=== PATIENT | female | born 1975 | race Caucasian/White ===

== ENCOUNTER 2023-04-26 21:31 | Emergency (ER) | payer OTHER, SELFPAY ==
[2023-04-26 21:33] VITALS: BP 135/89; PULSE 117; RESP 16; TEMP 36.2; O2SAT 98; BMI 27.8
--- NOTE | 2023-04-26 21:47 | EDS_ITS ---
HPI History of Present Illness Chief Complaint: Lower Extremity Injury Detail of Chief Complaint: Left leg edema Informant: patient Onset/Context/Timing Onset: Yesterday Narrative Narrative: Patient presents secondary to swelling in her left calf. She states she noted the symptoms yesterday but has no pain. She is from [place] and made a 6-hour car ride up on Saturday. She states he did stop frequently and walk around. She has no history of DVT. She has no leg pain, nor chest pain or shortness of breath. She states she went to a wedding today and wore high heels without any difficulty. [facility] Medical History (Updated 04/27/23 @ 00:[address] Sangita García MD) Breast cancer Home Medications rivaroxaban 15 mg tablet (Xarelto) 15 mg PO BID #14 TABLETS 04/27/23 [Rx Last Taken Unknown] Allergy/AdvReac Type Severity Reaction Status Date / Time No Known Allergies Allergy Verified 04/26/23 21:33 Social History Smoking Status: Never smoker ROS ROS ED Constitutional Constitutional ED: Denies chills or fever(s) Eyes Eyes: Denies discharge from eye(s) ENT ENT ED: Denies discharge from eye(s), rhinorrhea or sore throat Cardiovascular Cardiovascular: Denies chest pain or palpitations Respiratory/Chest Respiratory/Chest: Denies cough or dyspnea Gastrointestinal Gastrointestinal: Denies abdominal pain, nausea or vomiting Musculoskeletal Musculoskeletal: Reports other Details: Lower extremity edema ; Denies back pain or extremity pain Integumentary Denies Abrasions or rash Neurologic Neurologic: Denies headache(s) or weakness Psychiatric Psychiatric: Denies anxiety or depression Allergic/Immunologic Allergic/Immunologic ED: Denies lip swelling or urticaria EXAM Physical Exam Const Vital Signs: 04/26/23 21:33 Temperature 97.2 F L Temperature Source Temporal Pulse Rate 117 H Respiratory Rate 16 Blood Pressure 135/89 H Blood Pressure Mean 104 Pulse Ox 98 Oxygen Delivery Method Room Air Positive well nourished and well developed General Appearance ED: well developed HEENT Reports moist mucous membranes Eyes EOMs intact bilaterally Chest Wall inspection of chest normal and palpation of chest normal Resp normal respiratory effort and clear to auscultation bilaterally Cardio regular rate and regular rhythm GI normal to inspection, nondistended, normoactive bowel sounds Extremity Extremity Narrative: Mild edema to the distal aspect of the left lower extremity. No erythema. No palpable cords or tenderness to palpation. Strong distal pulses. Normal sensation. Neuro oriented x3 and no sensory deficits noted Motor Exam: strength 5/5 throughout Psych mental status grossly normal Skin no rashes or lesions noted MDM MDM MDM Narrative Medical decision making narrative: Venous ultrasound of the left lower extremity obtained to evaluate for DVT. Received a phone call from the [facility]. Patient does have a DVT in the mid calf and up into the popliteal. Test results discussed with patient. With need for anticoagulation I did draw a CBC and BMP to ensure normal renal function. Hemoglobin 7.1. Platelet count is slightly low at 133,000. Her white count is normal at 7.1. Chemistry studies are unremarkable with normal renal function. Patient is given a copy of her labs. I will write her a 1 week course of Xarelto. She is returning back to [place] Saturday and will follow-up with her oncologist for repeat lab work at that time. If he wishes to continue her Xarelto he can write further prescription for this. Patient and at bedside are in agreement with the plan. Lab Data Labs: Laboratory Results - last 24 hr 04/26/23 23:31 WBC 7.1 RBC 2.09 L Hgb 7.1 L Hct 23.1 L MCV 110.5 H MCH 34.0 H MCHC 30.7 L RDW Std Deviation 65.8 H RDW Coeff of James 16.7 H Plt Count 133 L MPV 10.8 Neut % (Auto) Not Reportable Sodium 144 Potassium 3.5 Chloride 115 H Carbon Dioxide 25.0 Anion Gap 4 L BUN 10 Creatinine 0.82 Estim Creat Clear Calc 76.32 Est GFR (MDRD) Af Amer 96 Est GFR (MDRD) Non-Af 79 BUN/Creatinine Ratio 12.2 Glucose 119 H Calcium 8.7 Radiography Diagnostic Testing: Clinical Impression(s) from Imaging Studies Venous Duplex 04/26/23 21:49 IMPRESSION: DVT left popliteal, posterior tibial and peroneal veins Electronically Signed: Prasanth Gunn MD at 22:53 EST Reading Location ID and State: [facility] / [place] Tel , Service support , ADDENDUM: 04/26/23 2311 IMPRESSION: DVT left popliteal, posterior tibial and peroneal veins N.B. : The above Results were Read Back by Prasanth Gunn MD to [phone], and understanding confirmed on 04/26/2023 23:04:35 (ET). Electronically Signed: Prasanth Gunn MD at 22:53 EST , Discharge Plan Triage Chief Complaint: Lower Extremity Injury ED Provider: Sangita García Dx/Rx/DC Orders Clinical Impression: DVT (deep venous thrombosis) Instructions: ED Deep Vein Thrombosis (DVT) Prescriptions: New Xarelto 15 mg tablet 15 mg PO BID Qty: 14 0RF Primary Care Provider: [facility] ,Out of Referrals: [facility] Doctor,Out of [Primary Care Provider] - Disposition Disposition: Home, Self Care
--- NOTE | 2023-04-26 21:49 | US_ITS ---
We are attempting to reach an attending provider to discuss findings. An addendum with communication details will be sent when the communication is complete. STUDY: VENOUS DOPPLER ULTRASOUND - LEFT LOWER EXTREMITY REASON FOR EXAM: Female, 48 years old. swelling left leg TECHNIQUE: Ultrasound evaluation of the deep vein system to include somers-scale imaging and compression was performed. Somers-scale imaging and Doppler sonographic evaluation, including duplex spectral analysis and qualitative color flow sonography, was performed. COMPARISON: None. FINDINGS: Common Femoral Vein: Normal compression, spontaneity and augmentation. Normal color Doppler. Common Femoral Vein/Greater Saphenous Junction: Normal compression, spontaneity and augmentation. Normal color Doppler. Deep Femoral Vein: Normal compression, spontaneity and augmentation. Normal color Doppler. Femoral Proximal: Normal compression, spontaneity and augmentation. Normal color Doppler. Femoral Middle: Normal compression, spontaneity and augmentation. Normal color Doppler. Femoral Distal: Normal compression, spontaneity and augmentation. Normal color Doppler. Popliteal Vein: [No compression, spontaneity and augmentation. No color Doppler. Posterior Tibial Vein: No compression, spontaneity and augmentation. No color Doppler. Peroneal Vein: No compression, spontaneity and augmentation. No color Doppler. US/Venous Duplex Imag/Limited/Uni IMPRESSION: DVT left popliteal, posterior tibial and peroneal veins Electronically Signed: Prasanth Gunn MD at 22:53 EST ,
[2023-04-26 23:39] LABS: Hematocrit 23.1 % (37-47); Hemoglobin 7.1 g/dL (12.0-15.0); Mean Corp Hgb Conc 30.7 g/dL (32-36); Mean Corpuscular Volume 110.5 fL (81-99); Mean Platelet Vol. 10.8 fl (6.2-12.0); POSITIVE COUNT YES; POSITIVE MORPHOLOGY YES; Platelet Count 133 K/mm3 (150-450); RBC Distribution Width CV 16.7 % (11.6-14.6); RBC Distribution Width SD 65.8 fl (35.1-43.9); Red Blood Count 2.09 M/mm3 (4.2-5.4); White Blood Count 7.1 K/mm3 (4.4-11.0)
[2023-04-26 23:40] LABS: Differential Indicated MANUAL DIFF
[2023-04-26 23:56] LABS: Anion Gap 4 (5-15); BUN 10 mg/dL (7-18); BUN/Creat Ratio 12.2 RATIO (10-20); Calcium,Total 8.7 mg/dL (8.5-10.1); Chloride 115 mmol/L (98-107); Creatinine, Serum 0.82 mg/dL (0.55-1.02); EST Glomerular Filtration Rate 79 mL/min (>60); Est Glom Filt Rate - Afr Amer 96 mL/min (>60); Estimated Creatinine Clearance 76.32 ml/min; Glucose 119 mg/dL (74-106); Potassium 3.5 mmol/L (3.5-5.1); Sodium Level 144 mmol/L (136-145)
[2023-04-27 00:11] LABS: Neutrophil-Band 12 % (0-5); Total Cells Counted 100 (MANUAL DIFF)
[2023-04-27 00:12] LABS: Anisocytosis 1+; Basophil 1 % (0-1); Eosinophil 0 % (0-5); Hypochromasia 2+; Lymphocyte 16 % (19-41); Macrocytosis 1+; Metamyelocyte 5 % (0-1); Monocyte 10 % (0-10); Myelocyte 7 % (0-0); Neutrophil-Segmented 49 % (47-70); Platelet Estimate ADEQUATE (ADEQ)
[2023-04-27 00:13] LABS: Absolute Lymphocyte Count 1.14 X10^3/uL (0.83-4.51); Absolute Neutrophil Count 4.3 X10^3/uL (2.0-7.7); Lymphocyte # 1.14 X10^3/ul (0.83-4.51); Neutrophil # 4.34 X10^3/uL (2.7-7.7)
[2023-04-27] MEDS: Rivaroxaban 15 MG Tablet PO (00:38)
[2023-04-30 09:58] LABS: Pathologist Review Reviewed
== END 2023-04-27 00:48 | disposition home or self-care (01) ==
PROVIDERS: Emergency Provider Emergency Medicine; Visit Provider Emergency Medicine
DX: I82.432 Acute embolism and thrombosis of left popliteal vein (principal); I82.452 Acute embolism and thrombosis of left peroneal vein; Z79.01 Long term (current) use of anticoagulants
CPT/HCPCS: 36415; 80048; 85025; 93971; 99282; A4216